=== PATIENT | female | born 1955 | race Two or more races ===

== ENCOUNTER 2016-07-04 02:09 | Emergency (ER) | payer SELFPAY ==
[2016-07-04] MEDS ORDERED: IBUPROFEN 600 MG TABLET ONE (04:49)
[2016-07-04] MEDS ORDERED: MECLIZINE HCL 25 MG TABLET ONE (04:50)
[2016-07-04] MEDS ORDERED: ACETAMINOPHEN 325 MG TABLET ONE (04:50)
== END 2016-07-04 05:22 | disposition home or self-care (01) ==
LOC: ED 02:09
DX: H81.10 Benign paroxysmal vertigo, unspecified ear (principal); J02.9 Acute pharyngitis, unspecified
CPT/HCPCS: 87880; 87804; 99283 ×2; A9270 ×3